=== PATIENT | male | born 1985 | race Caucasian/White ===

== ENCOUNTER 2018-10-16 16:32 | Emergency (ER) | payer OTHER ==
[2018-10-16 16:39] VITALS: BP 128/86; PULSE 98; TEMP 98.3; BMI 32.1
[2018-10-16] MEDS ORDERED: KETOROLAC TROMETHAMINE 60 MG/2 ML VIAL IM ONE (17:09)
[2018-10-16] MEDS ORDERED: CYCLOBENZAPRINE HCL 5 MG TABLET PO ONE (17:09)
[2018-10-16] MEDS ORDERED: KETOROLAC TROMETHAMINE 60 MG/2 ML VIAL ONE (17:12)
[2018-10-16] MEDS ORDERED: CYCLOBENZAPRINE HCL 10 MG TABLET (FP) ONE (17:13)
--- NOTE | 2018-10-16 17:16 | PDOC ---
History of Present Illness <Saleem Ley - Last Filed: 10/16/18 17:10> - General History Source: Patient Exam Limitations: No Limitations - History of Present Illness Initial Comments: 10/16/18 17:23 The patient is a 33-year-old male with no reported past medical history presents to the emergency department with upper back pain. The patient presents with several days of pain across the upper back that radiates up to the neck. The patient reports the pain is stabbing in quality, with a severity of 10/10, without relief or improvement with Advil 800 mg or with stretching. The patient reports the pain is aggravated with the movement of the head. 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 Denies trauma or injury to the neck. Denies weakness or numbness. 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 Allergies: NKDA Social history: Denies the use of tobacco or drugs. Social alcohol user. Surgical history: Abcess removed from the abdomen. PCP: Yazmin Landry. <Rochelle Alexandra - Last Filed: 10/16/18 17:24> - General Chief Complaint: Pain Stated Complaint: NECK PAIN Time Seen by Provider: 10/16/18 16:38 Past History - Past Medical History Anemia: No Asthma: No Cardiac Disorders: No COPD: No CHF: No Diabetes: No GI Disorders: Yes (GASTRIC ULCER) Psychiatric Problems: Yes (ADD) - Immunization History Immunization Up to Date: No - Suicide/Smoking/Psychosocial Hx Smoking Status: Yes Smoking History: Never smoked Have you smoked in the past 12 months: No Number of Cigarettes Smoked Daily: 3 Information on smoking cessation initiated: No 'Breaking Loose' booklet given: 09/20/17 Hx Alcohol Use: No Drug/Substance Use Hx: No Substance Use Type: Marijuana Hx Substance Use Treatment: No <Saleem Ley - Last Filed: 10/16/18 17:10> <Rochelle Alexandra - Last Filed: 10/16/18 17:24> - Past Medical History Allergies/Adverse Reactions: Allergies Allergy/AdvReac Type Severity Reaction Status Date / Time No Known Allergies Allergy Verified 10/16/18 16:33 Home Medications: Ambulatory Orders Cyclobenzaprine HCl [Flexeril -] 10 mg PO BID PRN #7 tablet 10/16/18 Dextroamphetamine/Amphetamine [Adderall 10 mg Tablet] 20 mg PO DAILY 10/16/18 Naproxen 500 mg PO BID PRN #20 tablet 10/16/18 Review of Systems - Review of Systems Constitutional: No: Chills, Fever, Night Sweats HEENTM: No: Recent change in vision, Throat Pain, Throat Swelling Respiratory: No: Shortness of Breath Cardiac (ROS): No: Chest Pain Musculoskeletal: Yes: Back Pain, Muscle Pain Integumentary: No: Rash Neurological: No: Paresthesia, Tingling, Weakness <Saleem Ley - Last Filed: 10/16/18 17:10> *Physical Exam - Vital Signs Last Vital Signs Temp Pulse Resp BP Pulse Ox 98.3 F 98 H 18 128/86 99 10/16/18 16:32 10/16/18 16:32 10/16/18 16:32 10/16/18 16:32 10/16/18 16:32 <Saleem Ley - Last Filed: 10/16/18 17:10> - Vital Signs Last Vital Signs Temp Pulse Resp BP Pulse Ox 98.3 F 98 H 18 128/86 99 10/16/18 16:32 10/16/18 16:32 10/16/18 16:32 10/16/18 16:32 10/16/18 16:32 - Physical Exam Comments: 10/16/18 17:23 GENERAL: The patient is awake, alert, and fully oriented, in no acute distress. HEAD: Normal with no signs of trauma. EYES: Pupils equal, round and reactive to light, extraocular movements intact, sclera anicteric, conjunctiva clear with no pallor. ENT: oropharynx clear without exudates. Moist mucous membranes. NECK: Normal range of motion, supple without lymphadenopathy, JVD, or masses. LUNGS: Breath sounds equal, clear to auscultation bilaterally. No wheeze/ crackles. HEART: Regular rate and rhythm, normal S1 and S2 without murmur or rub. EXTREMITIES: Normal range of motion. 5/5 flexion and extension of the upper extremity bilaterally. NEUROLOGICAL: Cranial nerves II through XII grossly intact. Normal speech, normal gait. PSYCH: Normal mood, normal affect. SKIN: Warm, Dry, normal turgor, no rashes or lesions noted. <Rochelle Alexandra - Last Filed: 10/16/18 17:24> ED Treatment Course - Medications Given in the ED: ED Medications Discontinued Medications Generic Name Dose Route Start Last Admin Trade Name Wandy PRN Reason Stop Dose Admin Cyclobenzaprine HCl 5 mg 10/16/18 17:09 10/16/18 17:20 Cyclobenzaprine Hcl PO 10/16/18 17:10 5 mg ONCE ONE Administration Ketorolac Tromethamine 60 mg 10/16/18 17:09 10/16/18 17:20 Toradol Injection - IM 10/16/18 17:10 60 mg ONCE ONE Administration <Rochelle Alexandra - Last Filed: 10/16/18 17:24> Medical Decision Making - Medical Decision Making 10/16/18 17:10 Healthy 33-year-old male with history of occasional back spasms/back pain presents now with atraumatic upper back discomfort for the last few days. 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 No associated headache or neck stiffness, no motor or sensory deficit the extremities, no rashes swelling. Patient has taken occasional ibuprofen without relief, has been doing muscle exercises/stretches previously talked to him by a chiropractor, presents for evaluation secondary to persistent symptoms. Vitals are within normal limits Patient is well-appearing, comfortable, moves per easily in the bed from laying to sitting Skin is clear, no erythema or swelling There is no focal area of reproducible tenderness, no midline spine tenderness or deformity 5 out of 5 flexion/extension at bilateral upper extremities, full hand strength 33-year-old male with trapezius strain, no evidence of infection or neuropathy. Well-appearing, hemodynamically stable. NSAIDs and muscle relaxants Spine referral/MRI if symptoms persist Agrees with discharge plan, understands return criteria <Saleem Ley - Last Filed: 10/16/18 17:10> *DC/Admit/Observation/Transfer <Saleem Ley - Last Filed: 10/16/18 17:10> - Attestations Scribe Attestion: 10/16/18 17:23 Documentation prepared by Rochelle Alexandra, acting as medical policy specialist for Saleem Ley MD. <Rochelle Alexandra - Last Filed: 10/16/18 17:24> Diagnosis at time of Disposition: Trapezius muscle strain Qualifiers: Encounter type: initial encounter Laterality: unspecified laterality Qualified Code(s): S46.819A - Strain of other muscles, fascia and tendons at shoulder and upper arm level, unspecified arm, initial encounter - Discharge Dispostion Disposition: HOME Condition at time of disposition: Stable - Prescriptions Prescriptions: Cyclobenzaprine HCl [Flexeril -] 10 mg PO BID PRN #7 tablet PRN Reason: Muscle Spasms Naproxen 500 mg PO BID PRN #20 tablet PRN Reason: Pain - Referrals Referrals: Yazmin Pugh MD [Primary Care Provider] - Jason Hall MD [Staff Physician] - - Patient Instructions Printed Discharge Instructions: DI for Neck Sprain Additional Instructions: Activity as tolerated. Stay hydrated. Your symptoms are most consistent with trapezius muscle strain, similar to whiplash. Naproxen as prescribed twice daily for 5 days, then as needed for pain. Take Flexeril as prescribed as needed as muscle relaxant to assist with the spasm, Flexeril can make you lightheaded so take proper precautions. Continue range of motion exercises and stretching without overexerting the muscles. Continue your medications as previously prescribed by your physician. You should follow up with your primary doctor as needed regarding today's emergency department visit. If symptoms persist beyond 10-14 days, consider follow-up with a metrology specialist such as Dr. Hall, MRI imaging may be necessary at that time to further evaluate the cause of your symptoms. Return to the emergency department for any new or concerning symptoms, particularly intolerable pain, extremity weakness or numbness, redness or swelling or fevers or chills. - Post Discharge Activity
== END 2018-10-16 17:30 | disposition home or self-care (01) ==
LOC: FER 16:32
PROC: 3E0233Z Introduction of Anti-inflammatory into Muscle, Percutaneous Approach (ICD-10-PCS; principal; 2018-10-16)
DX: S46.819A Strain of other muscles, fascia and tendons at shoulder and upper arm level, unspecified arm, initial encounter (principal); X58.XXXA Exposure to other specified factors, initial encounter; Y93.89 Activity, other specified; Y92.89 Other specified places as the place of occurrence of the external cause
CPT/HCPCS: 99283-25

== ENCOUNTER 2019-02-12 09:47 | Emergency (ER) | payer OTHER | END 2019-02-12 11:37 | disposition home or self-care (01) | LOC: FER 09:47 ==

== ENCOUNTER 2020-04-16 23:15 | Emergency (ER) | payer OTHER ==
[2020-04-16 23:25] VITALS: BP 131/85; PULSE 90; TEMP 99; BMI 32.2
--- NOTE | 2020-04-16 23:58 | PDOC ---
History of Present Illness - General Chief Complaint: Pain Stated Complaint: RT FOOT PAIN Time Seen by Provider: 04/16/20 23:26 - History of Present Illness Initial Comments: This 34-year-old man with a history of gout but no other current medical issues presents with 3-day history of right foot pain. Patient states that he has no history of trauma or overuse regarding his right foot and that the symptoms are similar to previous episodes of acute gout. He contacted his PMD (Dr. Arnett [place]) soon after the onset of pain and swelling of the right forefoot. Prescription for indomethacin was called in by his doctor. The patient states that he has been taking the indomethacin as prescribed with little relief. Patient denies fever/chills, open wound of the right foot or previous history of cellulitis/abscess. He is never needed to take any other anti-inflammatory medication other than indomethacin. Has never taken colchicine as far as he can remember. No previous history of taking urate lowering medication. No recent change in diet or increased alcohol intake No daily medications prior to current indomethacin No known allergies Smokes tobacco rarely; alcohol use socially only; no other recreational drug use Past History - Medical History Allergies/Adverse Reactions: Allergies Allergy/AdvReac Type Severity Reaction Status Date / Time No Known Allergies Allergy Verified 10/16/18 16:33 Home Medications: Ambulatory Orders Ibuprofen 600 mg PO PRN PRN 04/16/20 Indomethacin 50 mg PO TID PRN 04/16/20 predniSONE [Deltasone -] 40 mg PO DAILY #8 tablet 04/17/20 Anemia: No Asthma: No Cardiac Disorders: No COPD: No CHF: No Diabetes: No GI Disorders: Yes (GASTRIC ULCER) Psychiatric Problems: Yes (ADD) Other medical history: GOUT - Immunization History Immunization Up to Date: No - Psycho-Social/Smoking History Smoking Status: Yes Smoking History: Never smoked Have you smoked in the past 12 months: No Number of Cigarettes Smoked Daily: 3 'Breaking Loose' booklet given: 09/20/17 Review of Systems - Review of Systems Able to Perform ROS?: Yes Comments:: 12 point review of systems is negative except for what is noted in the history of present illness *Physical Exam - Vital Signs Last Vital Signs Temp Pulse Resp BP Pulse Ox 99 F 90 16 131/85 97 04/16/20 23:18 04/16/20 23:18 04/16/20 23:18 04/16/20 23:18 04/16/20 23:18 - Physical Exam GENERAL: Adult male, alert and oriented x3, no acute distress HEAD: Normal with no signs of trauma. EYES: PERRLA, EOMI, sclera anicteric, conjunctiva clear. ENT: Ears normal, nares patent, oropharynx clear without exudates. Moist mucous membranes. EXTREMITIES: Right lower extremitymild edema, mild tenderness, faint erythema o f the forefoot, especially lateral aspect Minimally warm to touch; no fluctuance, discharge or open wounds seen; no deformity seen No lymphangitic streaking Remainder the extremity exam is normal NEUROLOGICAL: Cranial nerves II through XII grossly intact. Normal speech. No focal neurological deficits. Medical Decision Making - Medical Decision Making This 34-year-old man with a history of gout presents with right foot edema, pain, erythema and tenderness for the last 3 days. Indomethacin prescribed by his doctor has not been effective. No other associated symptoms. Exam as noted. Inflammation is centered in the forefoot (laterally, not at first MTP joint) Since patient has no history of trauma and has some tenderness but no extreme edema, deformity or ecchymosis, doubt acute trauma/dislocation. This may be early cellulitis but erythema is quite faint and area is only minimally warm to touch. Also, no obvious wound or skin breakage is present. Most likely, this is acute gout episode resistant to NSAIDs. Will start prednisone 40 mg daily with first dose tonight. The patient will be given prescription for 4 more days of 40 mg daily; the patient must contact his PMD for follow-up appointment and further treatment as needed. He should return however to the ER immediately if he has any lymphangitic streaking proximally or he develops fever/chills Discharge - Discharge Information Problems reviewed: Yes Clinical Impression/Diagnosis: Acute gout Qualifiers: Gout site: foot Gout etiology: unspecified cause Laterality: right Qualified Code(s): M10.9 - Gout, unspecified Condition: Stable Disposition: HOME - Additional Discharge Information Prescriptions: predniSONE [Deltasone -] 40 mg PO DAILY #8 tablet - Follow up/Referral - Patient Discharge Instructions Patient Printed Discharge Instructions: Gout Additional Instructions: Stop indomethacin Rest; avoid strenuous activity involving lower extremities Prednisone 40 mg daily for 4 more days Take prednisone with food Follow-up with Dr. Arnett within the next 3 to 4 days Return to ER immediately if you have increasing redness,swelling or have fever/chills - Post Discharge Activity
[2020-04-17] MEDS ORDERED: predniSONE 20 MG TABLET (UD) PO ONE (00:07)
[2020-04-17] MEDS ORDERED: predniSONE 20 MG TABLET (UD) ONE (00:11)
== END 2020-04-17 00:16 | disposition home or self-care (01) ==
LOC: FER 23:15
DX: M10.9 Gout, unspecified (principal)
CPT/HCPCS: 99283-25

== ENCOUNTER 2023-04-27 19:00 | Emergency (ER) | payer OTHER ==
[2023-04-27 19:07] VITALS: BP 119/84; PULSE 88; RESP 16; TEMP 98.6; BMI 30.2
[2023-04-27] MEDS ORDERED: KETOROLAC TROMETHAMINE 30 MG/1 ML VIAL IVPUSH ONE (19:36)
[2023-04-27] MEDS ORDERED: SODIUM CHLORIDE 1,000 ML IV ONE (19:36)
[2023-04-27] MEDS ORDERED: KETOROLAC TROMETHAMINE 30 MG/1 ML VIAL ONE (19:47)
[2023-04-27 19:58] LABS: HEMATOCRIT 47.1 % (35.4-49); HEMOGLOBIN 16.2 G/dL (11.7-16.9); MCH 29.5 pg (25.7-33.7); MCHC 34.5 g/dl (32.0-35.9); MEAN CELL VOLUME 85.6 fl (80-96); MEAN PLT VOLUME 7.5 fl (7.5-11.1); PLATELET COUNT 150.9 10^3/uL (134-434); RDW 14.2 % (11.9-15.9); WHITE BLOOD COUNT 10.5 10^3/uL (4.0-10.8)
[2023-04-27 20:15] LABS: EPITHELIAL CELLS 0-5 /hpf
[2023-04-27 20:18] LABS: ALBUMIN 4.9 g/dl (3.4-5.0); BILIRUBIN,TOTAL 0.7 mg/dl (0.2-1); BLOOD UREA NITROGEN 29.5 mg/dl (7-18); CALCIUM 9.9 mg/dl (8.5-10.1); CREATININE 1.8 mg/dl (0.6-1.3); SGOT/AST 17.86 U/L (15-37); SGPT/ALT 16.036 U/L (7-52)
== END 2023-04-27 21:00 | disposition home or self-care (01) ==
LOC: FER 19:00
PROC: 3E0333Z Introduction of Anti-inflammatory into Peripheral Vein, Percutaneous Approach (ICD-10-PCS; principal; 2023-04-27)
PROC: 3E0337Z Introduction of Electrolytic and Water Balance Substance into Peripheral Vein, Percutaneous Approach (ICD-10-PCS; 2023-04-27)
DX: R10.9 Unspecified abdominal pain (principal); N20.0 Calculus of kidney
CPT/HCPCS: 36415; 74176-TC; 80053; 81003; 81015; 85027; 99284-25

== ENCOUNTER 2023-04-29 14:52 | Emergency (ER) | payer OTHER ==
[2023-04-29 15:05] VITALS: BP 144/79; PULSE 87; RESP 18; TEMP 99.1; BMI 30.2
[2023-04-29 15:42] LABS: HEMATOCRIT 45.6 % (35.4-49); HEMOGLOBIN 14.9 G/dL (11.7-16.9); MCHC 32.7 g/dl (32.0-35.9); MEAN CELL VOLUME 85.8 fl (80-96); MEAN PLT VOLUME 7.8 fl (7.5-11.1); PLATELET COUNT 109.9 10^3/uL (134-434); RBC 5.32 10^6/uL (4.00-5.60); RDW 14.7 % (11.9-15.9); WHITE BLOOD COUNT 7.1 10^3/uL (4.0-10.8)
[2023-04-29] MEDS ORDERED: SODIUM CHLORIDE 1,000 ML IV ONE (16:00)
[2023-04-29] MEDS ORDERED: KETOROLAC TROMETHAMINE 30 MG/1 ML VIAL IVPUSH ONE (16:00)
[2023-04-29] MEDS ORDERED: KETOROLAC TROMETHAMINE 30 MG/1 ML VIAL ONE (16:05)
[2023-04-29 16:11] LABS: ALBUMIN 4.3 g/dl (3.4-5.0); BILIRUBIN,TOTAL 0.7 mg/dl (0.2-1); CALCIUM 9.1 mg/dl (8.5-10.1); CREATININE 1.6 mg/dl (0.6-1.3); POTASSIUM 4.3 mmol/L (3.5-5.1)
[2023-04-29 16:27] LABS: PLATELET ESTIMATE SLT DECREASE
== END 2023-04-29 17:39 | disposition home or self-care (01) ==
LOC: FER 14:52
PROC: 3E0333Z Introduction of Anti-inflammatory into Peripheral Vein, Percutaneous Approach (ICD-10-PCS; principal; 2023-04-29)
PROC: 3E0337Z Introduction of Electrolytic and Water Balance Substance into Peripheral Vein, Percutaneous Approach (ICD-10-PCS; 2023-04-29)
DX: R10.31 Right lower quadrant pain (principal); R11.0 Nausea; R61 Generalized hyperhidrosis; N20.0 Calculus of kidney
CPT/HCPCS: 36415; 80053; 81003; 85027; 87086; 99284-25